=== PATIENT | female | born 1975 | race American Indian/Alaskan Native ===

== ENCOUNTER 2017-09-28 21:08 | Emergency (ER) | payer MEDICAID ==
[~2017-09-28] VITALS: Ht 165.1 cm; Wt 61.2 kg
--- NOTE | 2017-09-28 23:26 | NUR ---
Patient discharged to home in stable conditon. Written and verbal after care instructions given. Patient verbalizes understanding of instructions. All belongings with pt. No distress noted. VSS.
[2017-09-28 23:31] VITALS: BP 117/79
== END 2017-09-28 23:36 | disposition home or self-care (01) ==
LOC: ER 21:13
DX: S80.12XA Contusion of left lower leg, initial encounter (principal); V03.10XA Pedestrian on foot injured in collision with car, pick-up truck or van in traffic accident, initial encounter; Y92.481 Parking lot as the place of occurrence of the external cause; Y93.89 Activity, other specified; Y99.8 Other external cause status
CPT/HCPCS: 73551; A4663

== ENCOUNTER 2017-11-12 16:05 | Emergency (ER) | payer MEDICAID ==
[~2017-11-12] VITALS: Ht 160 cm; Wt 63.5 kg
[2017-11-12] MEDS ORDERED: KETOROLAC TROMETHAMINE 60 MG INJ IM ONE ×2 (16:28→16:30)
--- NOTE | 2017-11-12 17:08 | NUR ---
Patient discharged to home in stable conditon. Written and verbal after care instructions given to patient. Patient verbalizes understanding of instructions. CD copy ordered per patient's request. Radiology staff Joao notified.
--- NOTE | 2017-11-12 17:20 | NUR ---
Rx for 800mg ibuprofen was given instead of [place]. Patient refused the [place] prescription 2/ "It makes me nauseous." per patient's verbalization
== END 2017-11-12 17:21 | disposition home or self-care (01) ==
LOC: ER 16:09
DX: S16.1XXA Strain of muscle, fascia and tendon at neck level, initial encounter (principal); V43.52XA Car driver injured in collision with other type car in traffic accident, initial encounter; Y93.89 Activity, other specified; Y92.410 Unspecified street and highway as the place of occurrence of the external cause; Y99.8 Other external cause status
CPT/HCPCS: A4663; J1885

== ENCOUNTER 2018-09-24 19:34 | Emergency (ER) | payer MEDICAID ==
[~2018-09-24] VITALS: Ht 162.6 cm; Wt 65.8 kg
[2018-09-24] MEDS ORDERED: KETOROLAC TROMETHAMINE 30 MG INJ IM ONE (20:00)
[2018-09-24] MEDS ORDERED: IPRATROPIUM BROMIDE 0.5 MG/2.5 ML NEBU NEB ONE (20:00)
[2018-09-24] MEDS ORDERED: ALBUTEROL SULFATE 2.5 MG/3 ML NEBU NEB ONE (20:00)
[2018-09-24] MEDS ORDERED: KETOROLAC TROMETHAMINE 30 MG INJ ONE (20:02)
[2018-09-24] MEDS ORDERED: ALBUTEROL SULFATE 2.5 MG/3 ML NEBU ONE (20:05)
[2018-09-24] MEDS ORDERED: IPRATROPIUM BROMIDE 0.5 MG/2.5 ML NEBU ONE (20:05)
--- NOTE | 2018-09-24 20:30 | NUR ---
PATIENT STATES "I FEEL BETTER NOW."
--- NOTE | 2018-09-24 20:33 | NUR ---
Patient discharged to home in stable conditon. Written and verbal after care instructions given. Patient verbalizes understanding of instructions. WALKED OUT OF ER WITH NO DISTRESS NOTED
[2018-09-24 20:34] VITALS: BP 110/88
== END 2018-09-24 20:36 | disposition home or self-care (01) ==
LOC: ER 19:34
DX: R05 Cough (principal); H65.92 Unspecified nonsuppurative otitis media, left ear; Z88.8 Allergy status to other drugs, medicaments and biological substances
CPT/HCPCS: 71045; 94640; 96372; 99283; J1885; A4663; J3590

== ENCOUNTER 2018-12-15 21:01 | Emergency (ER) | payer MEDICAID ==
[~2018-12-15] VITALS: Ht 162.6 cm; Wt 65.8 kg
[2018-12-15] MEDS ORDERED: LEVO50TA8 PO (21:11)
[2018-12-15] MEDS ORDERED: IBUPROFEN 600 MG TABLET PO ONE (21:30)
[2018-12-15] MEDS ORDERED: CLINDAMYCIN HCL 150 MG CAPSULE PO ONE (21:30)
[2018-12-15] MEDS ORDERED: IBUPROFEN 600 MG TABLET ONE (21:37)
[2018-12-15] MEDS ORDERED: CLINDAMYCIN HCL 300 MG CAPSULE ONE (21:37)
--- NOTE | 2018-12-15 21:37 | NUR ---
Patient discharged to home in stable conditon. Written and verbal after care instructions given. Patient verbalizes understanding of instructions.
== END 2018-12-15 21:38 | disposition home or self-care (01) ==
LOC: ER 21:03
DX: L03.113 Cellulitis of right upper limb (principal); E03.9 Hypothyroidism, unspecified; Z88.5 Allergy status to narcotic agent; Z79.899 Other long term (current) drug therapy
CPT/HCPCS: A4663

== ENCOUNTER 2021-10-29 20:11 | Emergency (ER) | payer MEDICAID ==
[~2021-10-29] VITALS: Ht 152.4 cm; Wt 64.9 kg
[~2021-10-29 20:11] MED LIST: LEVO50TA8 PO
[2021-10-29] MEDS ORDERED: ALBUTEROL SULFATE 2.5 MG/3 ML NEBU NEB ONE (21:45)
[2021-10-29] MEDS ORDERED: IPRATROPIUM BROMIDE 0.5 MG/2.5 ML NEBU NEB ONE (21:45)
[2021-10-29] MEDS ORDERED: IPRATROPIUM BROMIDE 0.5 MG/2.5 ML NEBU ONE (21:52)
[2021-10-29] MEDS ORDERED: ALBUTEROL SULFATE 2.5 MG/3 ML NEBU ONE ×2 (21:53→21:59)
--- NOTE | 2021-10-29 22:09 | NUR ---
Pt currently on albuterol/atrovent neb. RT at bedside monitoring pt. VSS, No s/sxof distress present.
[2021-10-29] MEDS ORDERED: DOXY100C5 PO (23:00)
[2021-10-29] MEDS ORDERED: ALBU6.7H9 INH (23:00)
[2021-10-29] MEDS ORDERED: FLUT12AE5 INH (23:00)
--- NOTE | 2021-10-29 23:08 | NUR ---
Patient discharged to home in stable condition. Written and verbal after care instructions given. Patient verbalizes understanding of instructions. Stressed follow up or return to ER for worsening s/s. PT ambulated with steady gait. denies pain. no SOB. no chest pain. AOx4
[2021-10-29 23:09] VITALS: BP 113/79
== END 2021-10-29 23:10 | disposition home or self-care (01) ==
LOC: ER 20:13
DX: J45.909 Unspecified asthma, uncomplicated (principal); E05.00 Thyrotoxicosis with diffuse goiter without thyrotoxic crisis or storm; Z79.890 Hormone replacement therapy; Z86.16 Personal history of COVID-19
CPT/HCPCS: 71045; A4663; J3590

== ENCOUNTER 2023-11-17 22:38 | Emergency (ER) | payer MEDICAID ==
[~2023-11-17] VITALS: Ht 165.1 cm; Wt 71.7 kg
[~2023-11-17 22:38] MED LIST changes: +ALBU6.7H9 INH; +DOXY100C5 PO; +FLUT12AE5 INH
[2023-11-17 23:25] LABS: CALCIUM 8.8 mg/dL (8.5-10.1); CARBON DIOXIDE 25 mmol/L (21-32); CHLORIDE 103 mmol/L (98-107); CREATININE 0.7 mg/dL (0.6-1.3); GLUCOSE 93 mg/dL (74-106); POTASSIUM 3.5 mmol/L (3.5-5.1); SODIUM SERUM 138 mmol/L (136-145); UREA NITROGEN, BLOOD 16 mg/dL (7-18)
[2023-11-17 23:28] LABS: BASOPHILS % (AUTO) 0.6 % (0.0-2.0); EOSINOPHILS # (AUTO) 0.2 K/uL (0.0-0.7); EOSINOPHILS % (AUTO) 3.2 % (0.0-7.0); HEMATOCRIT 37.8 % (31.2-41.9); HEMOGLOBIN 12.1 g/dL (10.9-14.3); LYMPHOCYTES # (AUTO) 2.1 K/uL (0.8-4.8); LYMPHOCYTES % (AUTO) 27.7 % (20.5-51.5); MEAN CORPUSCULAR HEMOGLOBIN 28.6 uug (24.7-32.8); MEAN CORPUSCULAR HGB CONC 32 g/dL (32.3-35.6); MEAN CORPUSCULAR VOLUME 88.9 fL (75.5-95.3); MONOCYTES # (AUTO) 0.6 K/uL (0.1-1.30); MONOCYTES % (AUTO) 8.7 % (0.0-11.0); NEUTROPHILS # (AUTO) 4.4 K/uL (1.8-8.9); NEUTROPHILS % (AUTO) 59.8 % (38.5-71.5); PLATELET COUNT (AUTO) 158 K/uL (179-408); RED BLOOD CELL COUNT(AUTO) 4.25 MIL/uL (3.63-4.92); RED CELL DISTRIBUTION WIDTH 13.5 % (12.3-17.7); WHITE BLOOD COUNT (AUTO) 7.4 K/uL (3.8-11.8)
[2023-11-17 23:31] LABS: ALANINE AMINOTRANSFERASE 13 U/L (14-59); ALBUMIN 3.3 g/dL (3.4-5.0); ALKALINE PHOSPHATASE 71 U/L (50-136); ASPARTATE AMINOTRANSFERASE 7 U/L (15-37); BILIRUBIN,TOTAL 0.4 mg/dL (0.2-1.0); TOTAL PROTEIN, SERUM 7.3 g/dL (6.4-8.2)
[2023-11-17 23:42] LABS: PREGNANCY TEST SERUM QUAN < 1 miul/L (0-6)
[2023-11-18] MEDS ORDERED: IBUPROFEN 400 MG TABLET ONE (01:04)
[2023-11-18] MEDS ORDERED: MEDR10TA10 PO (01:09)
[2023-11-18] MEDS: IBUPROFEN 400 MG TABLET PO ONE (01:11)
[2023-11-18] MEDS ORDERED: IBUP-1955 PO (01:12)
[2023-11-18 01:20] VITALS: BP 135/77; TEMP 98.7; O2SAT 99
== END 2023-11-18 01:21 | disposition home or self-care (01) ==
LOC: EDBD 22:42 → ER 22:42
DX: N92.0 Excessive and frequent menstruation with regular cycle (principal); R10.2 Pelvic and perineal pain; R51.9 Headache, unspecified; J45.909 Unspecified asthma, uncomplicated; Z88.8 Allergy status to other drugs, medicaments and biological substances; Z79.899 Other long term (current) drug therapy
CPT/HCPCS: 36415; 84443; 85025; 85730; A4606; A4663